=== PATIENT | male | born 1995 | race Caucasian/White ===

== ENCOUNTER 2017-08-25 16:22 | Emergency (ER) | payer OTHER ==
[2017-08-25] MEDS ORDERED: Bacitracin/Neomycin/Polymyxin B Oint 0.9 GM U/D Packet ONE (16:45)
[2017-08-25] MEDS ORDERED: Diphtheria,Pertussis(Acell),Tetanus Vaccine 0.5 ML SDV inactive IM ONE (18:23)
--- NOTE | 2017-08-25 22:24 | ER ---
HISTORY OF PRESENT ILLNESS: A 21-year-old male here with a laceration involving the left eyebrow area. [place] He was running across the ice to check a fishing larry, and he slipped and fell, hitting his head. The patient denies any other injuries. He did not get knocked out. He states he did not feel woozy or lightheaded. He has not had any problems with nausea. He denies any problems with neck pain and states his only pain is right at the laceration site which is mild in nature. They did hold pressure to the area to try to help with the bleeding which did seem to improve after a few minutes. OBJECTIVE: GENERAL APPEARANCE: The patient is awake and alert to person, place, and date. VITAL SIGNS: Reviewed as listed. Examining the patient's face reveals a transverse laceration through the left eyebrow that is about 8 cm in length. It is slightly gaping. It is through the epidermis, slightly into the subcu tissue. The wound edges are clean and sharp. DIAGNOSIS: Laceration. TREATMENT PLAN: The site was cleansed by nursing staff after which I injected 1% lidocaine with epinephrine locally for anesthesia. I then cleansed the area once again with a Hibiclens/water solution after which I acquired a sterile field, and I closed the wound with sutures. He required 8 sutures using 5-0 Ethilon. The patient tolerated the procedure well. POST-CARE INSTRUCTIONS: Antibiotic ointment and a bandage will be applied over this area. He is to monitor for infection. Keep the site covered for a couple of days and then it should be able to be opened to air. Sutures should be removed in 8-10 days, and a Tdap will be given today as well. The patient has no further questions. JOSSY/MODL /[id number]
== END 2017-08-25 17:15 | disposition home or self-care (01) ==
LOC: LB.ED 16:22
DX: S01.112A Laceration without foreign body of left eyelid and periocular area, initial encounter (principal); W01.0XXA Fall on same level from slipping, tripping and stumbling without subsequent striking against object, initial encounter
CPT/HCPCS: 12015; 90471; 90715; 99283-25